=== PATIENT | male | born 1980 | race Caucasian/White ===

== ENCOUNTER 2018-03-06 09:08 | Emergency (ER) | payer OTHER ==
[~2018-03-06] VITALS: Ht 172.7 cm; Wt 90.7 kg
[~2018-03-06 09:08] MED LIST: FLEXERIL PO; NORCO 5-325 TA1 EACH PO; VISTARIL 25 MG25 M1 OR
[2018-03-06] MEDS ORDERED: PERCOCET 5-3251 EACH PO (09:40)
[2018-03-06] MEDS ORDERED: TOBRAMYCIN SULFA5 ML OPHTHALMIC (09:40)
[2018-03-06 09:50] VITALS: BP 134/88
== END 2018-03-06 09:58 | disposition home or self-care (01) ==
LOC: M.ERS 09:08
DX: S05.02XA Injury of conjunctiva and corneal abrasion without foreign body, left eye, initial encounter (principal); W18.39XA Other fall on same level, initial encounter; Y93.89 Activity, other specified; Y92.89 Other specified places as the place of occurrence of the external cause; Y99.8 Other external cause status

== ENCOUNTER 2018-03-18 14:16 | Emergency (ER) | payer OTHER ==
[~2018-03-18] VITALS: Ht 175.3 cm; Wt 90.7 kg
[~2018-03-18 14:16] MED LIST changes: +PERCOCET 5-3251 EACH PO; +TOBRAMYCIN SULFA5 ML OPHTHALMIC
[2018-03-18] MEDS ORDERED: BLEPH-105 ML OPHTHALMIC (15:01)
[2018-03-18 15:15] VITALS: BP 122/78
== END 2018-03-18 15:16 | disposition home or self-care (01) ==
LOC: M.ERS 14:16
DX: H10.9 Unspecified conjunctivitis (principal)